=== PATIENT | female | born 1935 | race Caucasian/White ===

== ENCOUNTER 2016-04-13 01:15 | Emergency (ER) | payer OTHER, MEDICARE ==
[~2016-04-13 01:15] MED LIST: CALCIUM +D & M1 EACH PO; COUMADIN2 M1 PO; DOCUSATE SODIU100 MG PO; HYDROCHLOROTHIA25 M1 PO; HYDRODIURIL 2525 MG PO; MIRALAX119 GM PO; MULTI-DAY VITA1 EACH PO; MULTIVITAMIN1 TAB PO; NEXIUM 40MG40 MG PO; PERCOCET 325 MG1 TA2 PO; PERCOCET 5-3251 EACH PO; PRAVACHOL40 M1 PO; PRAVASTATIN SOD40 MG PO; SENNA PLUS TAB1 EACH PO; TYLENOL TAB 32325 MG PO
--- NOTE | 2016-04-13 01:19 | ED MVC/FALL/TRAUMA COMPLAINT ---
History of Present Illness General Chief Complaint: Hip Injury Stated Complaint: BIBA PT C/O RT HIP PAIN S/P FALL Source: patient, family Exam Limitations: no limitations Vital Signs & Intake/Output Vital Signs & Intake/Output Vital Signs Date Time Temp Pulse Resp B/P Pulse O2 O2 Flow FiO2 Ox Delivery Rate 04/13 0325 97.4 85 16 100/55 97 04/13 0130 96 Room Air 04/13 0122 98.3 95 18 125/68 96 Room Air Allergies Coded Allergies: Penicillins (HIVES 07/19/15) benzocaine (UNKNOWN 11/17/15) Reconcile Medications Calcium Carb/Vit D3/Minerals (Calcium +D & Minerals Chew Tab) 1 EACH TAB.CHEW 2 TAB PO DAILY SUPPLEMENT (Reported) Hydrochlorothiazide 25 MG TABLET 1 TAB PO DAILY BP (Reported) Multivitamin (Multi-Day Vitamins) 1 EACH TABLET 1 TAB PO DAILY SUPPLEMENT ( Reported) Oxycodone HCl/Acetaminophen (Percocet 5-325 MG Tablet) 1 EACH TABLET 1 TAB PO Q4P PRN PAIN SCALE 6-10 Polyethylene Glycol 3350 (Miralax) 119 GM POWDER 17 GM PO DAILY AC PRN CONSTIPATION Pravastatin Sodium (Pravachol) 40 MG TABLET 1 TAB PO DAILY CHOLESTEROL ( Reported) Sennosides/Docusate Sodium (Senna Plus Tablet) 1 EACH TABLET 2 TAB PO DAILY PRN CONSTIPATION Warfarin Sodium (Coumadin) 2 MG TABLET 2 MG PO COUMADIN 1700 DVT prophylaxis Dose per daily INR, goal INR 2-3. Triage Nurses Notes Reviewed? yes Onset: Abrupt Duration: hour(s): Timing: single episode today Severity: moderate Injuries/Fall Location: lower extremity Method of Injury: fall Loss of Consciousness: no loss of consciousness Modifying Factors: Worsens With: movement, palpation. Associated Symptoms: right hip pain HPI: 80 yo woman presents with right hip pain after a fall. Past History Medical History Any Pertinent Medical History? see below for history Cardiovascular: hypertension, hyperlipidemia Gastrointestinal: esophageal cancer Cancer(s): BREAST CANCER History of MRSA: No History of VRE: No History of CDIFF: No Pneumonia Vaccine: 02/08/13 Influenza Vaccine: 01/09/14 Surgical History Surgical History: masectomy, orif bilaterl hip, right knee replacement Psychosocial History Who do you live with Patient/Self Services at Home None What is your primary language Urdu Family History Hx Contributory? No Review of Systems Review of Systems Constitutional: Reports: no symptoms. Eyes: Reports: no symptoms. Ears, Nose, Throat, Mouth: Reports: no symptoms. Respiratory: Reports: no symptoms. Cardiovascular: Reports: no symptoms. Gastrointestinal/Abdominal: Reports: no symptoms. Genitourinary: Reports: no symptoms. Musculoskeletal: Reports: no symptoms. Skin: Reports: no symptoms. Neurological/Psychological: Reports: no symptoms. All Other Systems: Reviewed and Negative Physical Exam Physical Exam General Appearance: well developed/nourished Head: atraumatic Eyes: Bilateral: normal appearance. Ears, Nose, Throat, Mouth: hearing grossly normal Neck: normal inspection Respiratory: normal breath sounds, chest non-tender, no respiratory distress Cardiovascular: regular rate/rhythm Gastrointestinal: normal bowel sounds, soft, non-tender Back: normal inspection Extremities: normal range of motion Neurologic/Psych: no motor/sensory deficits, awake, alert, oriented x 3 Skin: intact, normal color Core Measures ACS in differential dx? No Severe Sepsis Present: No Septic Shock Present: No Progress Differential Diagnosis: pelvis injury Plan of Care: Orders Procedure Date/time Status XRY-HIP 4 VIEWS UNI, RIGHT 04/13 118 Active Diagnostic Imaging: Viewed by Me: Radiology Read. Discussed w/RAD: Radiology Read. Radiology Impression: RIGHT HIP/HIP.... BILATERAL ARTHROPLASTIES INTACT... FULL REPORT BELOW. 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 The femoral head components are appropriately positioned within the acetabulum. No periprosthetic lucency or fracture. The pelvic ring appears intact. The pubic symphysis is not well evaluated due to angulation of the pelvis on this study. Cement noted over the sacrum bilaterally. The bowel gas pattern is unremarkable. IMPRESSION: No evidence of acute fracture or malalignment. Bilateral hip hemiarthroplasties appear intact. DICTATED BY: MITCH MILES MD DATE/TIME DICTATED:04/13/16222 ENVIR[employer]MENT[employer] PROTECTION ECONOMIST:KULDEEP DATE/TIME TRANSCRIBED:04/13/16222 CONFIDENTIAL, DO NOT COPY WITHOUT APPROPRIATE AUTHORIZATION. <Electronically signed in Other Vendor System> SIGNED BY: GINGER LUTZ,MITCH 04/13 Departure Departure Disposition: HOME OR SELF CARE Condition: Stable Clinical Impression Primary Impression: Fall Secondary Impressions: Contusion Referrals: WANDA LUTZ,DUDLEY Gallagher (PCP/Family) Departure Forms: Customer Survey General Discharge Information Comments 04/13/16, 3:29am.... pt ambulated well without problem... discussed at length. She would like to go home. I offered for her to stay until the am for PT/OT evaluation. She declines. I filled out w10 form to have case management arrange for home vna.
--- NOTE | 2016-04-13 02:28 | RADIOLOGY REPORT ---
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 The femoral head components are appropriately positioned within the acetabulum. No periprosthetic lucency or fracture. The pelvic ring appears intact. The pubic symphysis is not well evaluated due to angulation of the pelvis on this study. Cement noted over the sacrum bilaterally. The bowel gas pattern is unremarkable. IMPRESSION: No evidence of acute fracture or malalignment. Bilateral hip hemiarthroplasties appear intact.
[2016-04-13 03:25] VITALS: BP 100/55
== END 2016-04-13 03:41 ==
LOC: ERH 01:15
DX: S70.01XA Contusion of right hip, initial encounter (principal); W19.XXXA Unspecified fall, initial encounter
CPT/HCPCS: 96372; J1885